=== PATIENT | female | born 1935 | race Caucasian/White ===

== ENCOUNTER 2017-02-23 18:08 | Emergency (ER) | payer MEDICARE ==
[2017-02-23 20:33] LABS: BASO % 0.3 % (0.0-2.0); EOS # 1.3 K/uL (0.0-0.7); HEMATOCRIT 36.6 % (34.0-47.0); LYMPH # 3.3 K/uL (1.0-4.3); LYMPH % 27.1 % (20.0-40.0); MEAN CELL VOLUME 91.3 fL (81.0-99.0); MEAN CORPUSCULAR HGB CONC 32.8 g/dL (33.0-37.0); MEAN PLATELET VOLUME 9.5 fL (7.2-11.7); MONO % 8.5 % (0.0-10.0); RED CELL DISTRIBUTION WIDTH 12.7 % (11.5-14.5); WHITE BLOOD COUNT 12.1 K/uL (4.8-10.8)
[2017-02-23 20:42] LABS: INR 0.9
[2017-02-23 21:18] LABS: POTASSIUM 4.8 mmol/L (3.6-5.2)
[2017-02-23 21:20] LABS: ALB/GLOB RATIO 1.2 (1.0-2.1); BILIRUBIN,TOTAL 0.6 mg/dL (0.2-1.3); TOTAL PROTEIN 7.5 g/dL (6.3-8.3)
[2017-02-23 21:21] LABS: CALCIUM 9.5 mg/dl (8.6-10.4); URIC ACID 9.4 mg/dL (2.2-7.5)
[2017-02-23] MEDS ORDERED: Sodium Chloride 0.9% 1,000 ML IV ONE (21:34)
[2017-02-23] MEDS ORDERED: Enoxaparin 80 mg Syringe SC STA (21:34)
[2017-02-23] MEDS ORDERED: Enoxaparin 80 mg Syringe ONE (21:54)
[2017-02-23 21:59] VITALS: BP 136/75; PULSE 71; RESP 20; TEMP 98.3; O2SAT 100
--- NOTE | 2017-02-23 22:11 | C.PDOC ---
History Of Present Illness Pt c/o right ankle area pain and swelling. Denies injury. Time Seen by Provider: 02/23/17 20:03 Chief Complaint (Nursing): Lower Extremity Problem/Injury History Per: Patient, Family Onset/Duration Of Symptoms: Days (1) Current Symptoms Are (Timing): Still Present Severity: Moderate Additional History Per: Prior Records Past Medical History Vital Signs: Last Vital Signs Temp 98.3 F 02/23/17 21:59 Pulse 71 02/23/17 21:59 Resp 20 02/23/17 21:59 BP 136/75 02/23/17 21:59 Pulse Ox 100 02/23/17 21:59 - Medical History PMH: Asthma, Diabetes, HTN, Hypercholesterolemia, Pneumonia (years ago), Chronic Kidney Disease - [facility] Procedures FLUOROSCOPY OF GALLBLADDER & BILE DUCT USING L OSM CONTRAST (06/07/15) RESECTION OF GALLBLADDER, PERCUTANEOUS ENDOSCOPIC APPROACH (06/07/15) Family History: States: Unknown Family Hx - Social History Hx Tobacco Use: No Hx Alcohol Use: No Hx Substance Use: No - Immunization History Hx Tetanus Toxoid Vaccination: No Hx Influenza Vaccination: Yes Hx Pneumococcal Vaccination: Yes Review Of Systems Except As Marked, All Systems Reviewed And Found Negative. Constitutional: Negative for: Fever, Weakness Cardiovascular: Negative for: Chest Pain Respiratory: Negative for: Shortness of Breath Gastrointestinal: Negative for: Vomiting, Abdominal Pain Musculoskeletal: Positive for: Leg Pain (right), Foot Pain (right). Negative for: Neck Pain, Back Pain Skin: Negative for: Rash Neurological: Negative for: Weakness, Numbness Physical Exam - Physical Exam Appears: Non-toxic, No Acute Distress Skin: Warm, Dry Head: Atraumatic, Normacephalic Eye(s): bilateral: PERRL, EOMI Neck: Normal ROM, Supple Cardiovascular: Rhythm Regular Respiratory: Normal Breath Sounds, No Accessory Muscle Use Gastrointestinal/Abdominal: Soft, No Tenderness Extremity: Normal ROM, Tenderness (right ankle area), Capillary Refill (wnl), No Deformity, Swelling (right ankle area, with erythema) Pulses: Right Dorsalis Pedis: Normal Neurological/Psych: Oriented x3, Normal Motor, Normal Sensation ED Course And Treatment - Laboratory Results Result Diagrams: 02/23/17 20:25 02/23/17 20:25 Lab Interpretation: Abnormal Interpretation Of Abnormal: Elevated Uric acid and D-Dimer O2 Sat by Pulse Oximetry: 100 Pulse Ox Interpretation: Normal - Other Rad Right ankle x-rays X-Ray: Interpreted by Me, Viewed By Me Interpretation: No acute fx or dislocation. Medical Decision Making Medical Decision Making: Pt treated for gout. I would like to obtain a LE duplex to r/o a DVT, however it is not available at this time. Pt anticoagulated and instructed to return in the AM for the test. Disposition Counseled Patient/Family Regarding: Studies Performed, Diagnosis, Need For Followup - Disposition Disposition: HOME/ ROUTINE Disposition Time: 22:14 Condition: IMPROVED Additional Instructions: Return to the ER tomorrow morning for a leg ultrasound to rule out a blood clot. Forms: General Discharge Instructions - Clinical Impression Clinical Impression: Right ankle pain
--- NOTE | 2017-02-24 08:46 | RAD ---
PROCEDURE: Right Ankle Radiographs. HISTORY: Pain, swelling, erythema COMPARISON: None FINDINGS: BONES: No evidence of acute fracture or destructive bony lesion. 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 SOFT TISSUES: Mild soft tissue swelling. OTHER FINDINGS: None. IMPRESSION: No evidence of acute fracture or dislocation. Degenerative changes. Calcaneal spur.
== END 2017-02-23 22:19 | disposition home or self-care (01) ==
LOC: C.ER 18:08
DX: M25.571 Pain in right ankle and joints of right foot (principal); I12.9 Hypertensive chronic kidney disease with stage 1 through stage 4 chronic kidney disease, or unspecified chronic kidney disease; N18.9 Chronic kidney disease, unspecified; E11.22 Type 2 diabetes mellitus with diabetic chronic kidney disease
CPT/HCPCS: 73610; 80053; 84550; 85025; 85378; 85610; 85730; 96372; 99283; J1650